=== PATIENT | male | born 1950 | race Caucasian/White ===

== ENCOUNTER 2017-02-16 05:41 | Emergency (ER) | payer MEDICARE, OTHER ==
[~2017-02-16] VITALS: Ht 182.9 cm; Wt 91.3 kg
[~2017-02-16 05:41] MED LIST: AMBI5TAB PO; ASPI81 PO; CALC648T PO; DICL-86 PO; FISH1000 PO; METH500T3 PO; OXYC-360 PO; REST0.05 OU; TAB-TAB PO; ZOCO40TA PO
[2017-02-16 05:58] VITALS: BP 156/94; PULSE 95; RESP 18; TEMP 97.7; O2SAT 99
[2017-02-16] MEDS ORDERED: TOPR50TA PO (06:15)
[2017-02-16] MEDS ORDERED: ASPI81CH7 CHEW (06:15)
[2017-02-16] MEDS ORDERED: ROSU10 PO (06:15)
[2017-02-16] MEDS ORDERED: REST0.05 EACH EYE (06:15)
[2017-02-16] MEDS ORDERED: AZIT500T2 PO (07:10)
--- NOTE | 2017-02-16 07:10 | PD ---
HPI Chief Complaint: Cold / Flu Symptoms Time Seen by Provider: 06:58 Travel History International Travel<30 days: No Contact w/Intl Traveler<30days: No Traveled to known affect area: No History of Present Illness HPI Patient is a 66-year-old male who presents to emergency room with complaints of mild to moderate sore throat and nonproductive cough for the past 4 days. Patient reports that he has tried using Listerine rinses as well as salt water gargles with no relief of symptoms. Patient with no fevers or chills, patient with no other sick contacts. Patient with no chest pain or shortness of breath. Patient with no abdominal pain, nausea or vomiting. Patient with no other complaints at this time. PFSH Past Medical History Autoimmune Disease: No Blood Disorders: No Heart Rhythm Problems: No Cancer: No Cardiac Catheterization: Yes Cardiovascular Problems: Yes (4 VESSEL BYPASS IN . [place] IN WITH 1 STENT) High Cholesterol: Yes Chest Pain: Yes Congestive Heart Failure: No Diabetes: No Diminished Hearing: No Endocrine: No Genitourinary: No Hypertension: No Musculoskeletal: No Neurologic: No Psychiatric: No Respiratory: No Myocardial Infarction: Yes () Tetanus Vaccination: Unknown Influenza Vaccination: Yes Past Surgical History Cardiac Surgery: Yes (STENTS PLACMENT/QUAD BYPASS) Coronary Artery Bypass Graft: Yes (QUADRUPLE) Other Surgery: Yes Family History Family Myocardial Infarction: Yes (FATHER) Social History Alcohol Use: Yes (WINE/BEER ON WEEKENDS) Tobacco Use: No (QUIT 18 Y/O) Substance Use: No Allergies-Medications (Allergen,Severity, Reaction): Coded Allergies: penicillin G (Unverified Allergy, Severe, 02/16/17) Reported Meds & Prescriptions Reported Meds & Active Scripts Active Reported Aspirin Children's (Aspirin) 81 Mg Chew 81 Mg CHEW DAILY Restasis Opth 0.05% (Cyclosporine Opth 0.05%) 0.05% Emul 1 Drop EACH EYE BID Toprol XL (Metoprolol Succinate) 50 Mg Tab 50 Mg PO DAILY Crestor (Rosuvastatin Calcium) 10 Mg Tab 10 Mg PO DAILY Review of Systems General / Constitutional: No: Fever, Chills Eyes: No: Visual changes HENT: Positive: Sore Throat, No: Headaches Cardiovascular: No: Chest Pain or Discomfort Respiratory: Positive: Cough (nonproductive cough), No: Shortness of Breath Gastrointestinal: No: Abdominal Pain Genitourinary: No: Dysuria Musculoskeletal: No: Pain Skin: No Rash Neurologic: No: Weakness Psychiatric: No: Depression Endocrine: No: Polydipsia Hematologic/Lymphatic: No: Easy Bruising Physical Exam Narrative GENERAL: Well-nourished, well-developed patient. SKIN: Focused skin assessment warm/dry. HEAD: Normocephalic. ENT: patient with injected posterior pharynx b/l, b/l ears: normal TM with no bulging or erythema or injection EYES: No scleral icterus. No injection or drainage. NECK: Supple, trachea midline. No JVD or lymphadenopathy. CARDIOVASCULAR: Regular rate and rhythm without murmurs, gallops, or rubs. RESPIRATORY: Breath sounds equal bilaterally. No accessory muscle use. GASTROINTESTINAL: Abdomen soft, non-tender, nondistended. MUSCULOSKELETAL: No cyanosis, or edema. BACK: Nontender without obvious deformity. No CVA tenderness. Data Data Last Documented VS Vital Signs Date Time Temp Pulse Resp B/P (MAP) Pulse Ox O2 Delivery O2 Flow Rate FiO2 02/16/17 06:20 95 18 99 02/16/17 05:58 97.7 156/94 (114) Orders Orders Group A Rapid Strep Screen (02/16/17 06:00) Strep Culture (Group A) (02/16/17 05:07) Azithromycin (Zithromax) (02/16/17 07:15) MDM Medical Decision Making Medical Screen Exam Complete: Yes Emergency Medical Condition: Yes Interpretation(s) Vital Signs Date Time Temp Pulse Resp B/P (MAP) Pulse Ox O2 Delivery O2 Flow Rate FiO2 02/16/17 06:20 95 18 99 02/16/17 05:58 97.7 95 18 156/94 (114) 99 Differential Diagnosis Differential includes pharyngitis, viral syndrome, pneumonia Narrative Course 66-year-old male who presents to emergency room complaints of sore throat and nonproductive cough for the past 4 days. Patient has been afebrile for the past 4 days, no sick contacts. Patient is able to eat and drink without any difficulty. Vital signs are stable. Patient is afebrile in the emergency room. Patient does have injected pharynx, strep is negative, strep culture is pending. Plan to treat with azithromycin as patient does have a penicillin allergy. Patient will follow up with his primary care doctor and will return to the emergency room as needed. Diagnosis Primary Impression: Pharyngitis, acute Qualified Codes: J02.9 - Acute pharyngitis, unspecified Patient Instructions: General Instructions Additional Instructions: Please follow-up with your primary care doctor Please take all medications as prescribed Return to the emergency room if symptoms worsen or progress Return to the emergency room as needed Please follow-up with all cultures from today. Med/Other Pt SpecificInfo: Prescription(s) given Scripts Azithromycin (Azithromycin) 500 Mg Tab 500 MG PO DAILY for Infection, #5 TAB 0 Refills Prov: Yulisa Hampton DO 02/16/17 Disposition: 01 DISCHARGE HOME Condition: Stable Yulsia Hampton DO Feb 16, 2017 07:10
[2017-02-16] MEDS ORDERED: AZITHROMYCIN 250 MG TAB PO ONE (07:15)
== END 2017-02-16 07:17 | disposition home or self-care (01) ==
LOC: PHED 05:41
DX: J02.9 Acute pharyngitis, unspecified (principal); Z87.891 Personal history of nicotine dependence
CPT/HCPCS: 87081; 87880; 99283